=== PATIENT | male | born 1950 | race Caucasian/White ===

== ENCOUNTER → 2019-07-02 | Outpatient (CLI) | payer OTHER | LOC: SJCVCIMAG 10:50 | DX: R00.2 Palpitations (principal); E78.00 Pure hypercholesterolemia, unspecified; I10 Essential (primary) hypertension; R07.9 Chest pain, unspecified; R06.02 Shortness of breath ==

== ENCOUNTER → 2020-10-20 | Outpatient (CLI) | payer OTHER | LOC: CAT 12:56 | PROVIDERS: ATTEND Internal Medicine Cardiovascular Disease | DX: Z13.6 Encounter for screening for cardiovascular disorders (principal) ==

== ENCOUNTER → 2020-10-20 | Outpatient (CLI) | payer OTHER | LOC: SJCVC 12:10 | PROVIDERS: ATTEND Internal Medicine Cardiovascular Disease | DX: R06.09 Other forms of dyspnea (principal); I10 Essential (primary) hypertension; E78.00 Pure hypercholesterolemia, unspecified; M54.9 Dorsalgia, unspecified; G89.29 Other chronic pain; K59.09 Other constipation; K21.9 Gastro-esophageal reflux disease without esophagitis; M81.0 Age-related osteoporosis without current pathological fracture; F32.9 Major depressive disorder, single episode, unspecified; Z82.49 Family history of ischemic heart disease and other diseases of the circulatory system; G47.30 Sleep apnea, unspecified; Z79.899 Other long term (current) drug therapy; Z72.89 Other problems related to lifestyle ==